=== PATIENT | male | born 1980 ===

== ENCOUNTER 2017-01-23 09:55 | Emergency (ER) | payer OTHER ==
[2017-01-23] MEDS ORDERED: Sulfamethox/Trimethoprim DS 800/160* TAB PO ONE (11:20)
[2017-01-23] MEDS ORDERED: Cephalexin CAP* 500 MG PO ONE (11:20)
--- NOTE | 2017-01-23 11:31 | UC ---
Skin Complaint HPI - HPI Summary HPI Summary: 36 YO MALE SQUEEZED A PIMPLE BETWEEN HIS EYES YESTERDAY AWOKE TODAY WITH INCREASED PAIN SWELLING AND MILD BILATERAL LID EDEMA NO HX MRSA - History of Current Complaint Chief Complaint: UCSkin Time Seen by Provider: 01/23/17 11:12 Stated Complaint: POSSIBLE ABCESS/FACE Hx Obtained From: Patient Onset/Duration: Gradual Onset, Lasting Hours Timing: Constant Onset Severity: Mild Current Severity: Mild Pain Intensity: 3 Pain Scale Used: 0-10 Numeric Location: Discrete Character: Pain, Redness, Raised Aggravating: Touch Associated Signs & Symptoms: Positive: Negative - EXCEPT FOR TENDERNESS, NO F/C , Tenderness - Allergy/Home Medications Allergies/Adverse Reactions: Allergies Allergy/AdvReac Type Severity Reaction Status Date / Time No Known Allergies Allergy Verified 01/23/17 10:23 Home Medications: Home Medications Ibuprofen TAB* [Advil TAB*] 2 tab PO TID PRN 01/23/17 [History Confirmed ] Review of Systems Constitutional: Negative Skin: Negative Eyes: Negative ENT: Negative Respiratory: Negative Cardiovascular: Negative Gastrointestinal: Negative Genitourinary: Negative Motor: Negative Neurovascular: Negative Musculoskeletal: Negative Neurological: Negative Psychological: Negative All Other Systems Reviewed And Are Negative: Yes PMH/Surg Hx/FS Hx/Imm Hx Previously Healthy: Yes Endocrine History Of: Denies: Diabetes, Thyroid Disease Cardiovascular History Of: Denies: Cardiac Disorders, Hypertension Respiratory History Of: Denies: COPD, Asthma GI/ History Of: Denies: Ulcer - Surgical History Surgical History: Yes - Family History Known Family History: Negative: Cardiac Disease, Hypertension, Diabetes - Social History Alcohol Use: Rare Substance Use Type: None Smoking Status (MU): Never Smoked Tobacco Physical Exam Triage Information Reviewed: Yes Appearance: Well-Appearing, No Pain Distress, Well-Nourished Vital Signs: Initial Vital Signs Temp 98.1 F 01/23/17 10:25 Pulse 83 01/23/17 10:25 Resp 16 01/23/17 10:25 BP 122/65 01/23/17 10:25 Pulse Ox 100 01/23/17 10:25 Vital Signs Reviewed: Yes Eyes: Positive: Other: - MILD LID EDEMA/NOT RED ENT: Positive: Hearing grossly normal, Pharynx normal, TMs normal. Negative: Nasal congestion, Nasal drainage, Tonsillar exudate, Trismus, Muffled/hoarse voice Dental: Negative: Abscess @ Neck: Positive: Supple, Nontender, No Lymphadenopathy Respiratory: Positive: Lungs clear, Normal breath sounds, No respiratory distress, No accessory muscle use Cardiovascular: Positive: RRR, No Murmur Musculoskeletal: Positive: ROM Intact, No Edema Neurological: Positive: Alert Psychological Exam: Normal Skin Exam: Other - SEE IMAGE Course/Dx - Diagnoses Provider Diagnoses: FACIAL INFECTION Discharge - Discharge Plan Condition: Stable Disposition: HOME Prescriptions: Cephalexin CAP* [Keflex CAP*] 500 mg PO QID #28 cap Sulfamethox/Trimethoprim DS* [Bactrim DS 800/160 TAB*] 1 tab PO BID #14 tab Referrals: [facility] [place] [facility] REFERR[facility] [Outside] (CALL THIS NUMBER FOR HELP FINDING A NUTRITION PROFESSOR) Additional Instructions: WARM COMPRESSES EVERY 1-2 HOURS TODAY WHILE AWAKE DON'T SQUEEZE PIMPLE TO ER FOR WORSENING SYMPTOMS INCREASED PAIN FEVER RECHECK HERE IN 48 HOURS IF NOT BETTER OR MARKEDLY IMPROVED RECHECK IN ONE WEEK IF NOT COMPLETELY BETTER Images Head: 1 - PAPULE/MILD ERTHEMA/NOT FLUTUANCT 2 - MILD EDEMA/NO CELLULITIS
== END 2017-01-23 11:36 | disposition home or self-care (01) ==
LOC: UCEAST 09:55
DX: L08.9 Local infection of the skin and subcutaneous tissue, unspecified (principal)
CPT/HCPCS: 99202; A9270-GY; G0463